=== PATIENT | female | born 1980 | race Asian ===

== ENCOUNTER → 2017-11-29 | Outpatient (CLI) | payer BC ==
[~2017-11-29] MED LIST: LEVEMIR100 U/ML; MOTRIN 600600 MG/TAB PO; PRENATAL1 TA1 PO; SENOKOT S 50 MG1 TAB PO
== END ==
LOC: SUN.DIA 13:12
DX: O24.419 Gestational diabetes mellitus in pregnancy, unspecified control (principal); Z3A.29 29 weeks gestation of pregnancy; Z71.3 Dietary counseling and surveillance
CPT/HCPCS: G0108

== ENCOUNTER → 2017-12-16 | Outpatient (CLI) | payer BC | LOC: SUN.DIA 10:59 | DX: O24.419 Gestational diabetes mellitus in pregnancy, unspecified control (principal); Z3A.33 33 weeks gestation of pregnancy; Z71.3 Dietary counseling and surveillance | CPT/HCPCS: G0108 ==

== ENCOUNTER 2018-02-08 22:47 | Inpatient (IN) | payer BC ==
[2018-02-08] VITALS (7 sets, daily range): BP systolic 112–149; BP diastolic 69–80; PULSE 99–120; TEMP 98.6
[~2018-02-08] VITALS: Ht 157.5 cm; Wt 69.5 kg
[2018-02-09] VITALS (9 sets, daily range): BP systolic 93–119; BP diastolic 52–79; PULSE 90–122; TEMP 98–98.7
[2018-02-09 00:21] LABS: BASO # 0.1 (0.0-0.2); BASO % 0.3 % (0.0-2.0); EOS # 0.1 (0.0-0.7); EOS % 0.3 % (0-4.0); GRAN # 12.2 (1.4-6.5); GRAN % 71.7 % (42.2-75.2); HEMOGLOBIN 11.1 g/dl (12.5-16.0); LYMPH # 3.3 (1.2-3.4); LYMPH % 19.4 % (20.0-51.0); MEAN CELL VOLUME 84 fl (80.0-100.0); MEAN CORPUSCULAR HEMOGLOBIN 28 pg (27.0-31.0); MEAN CORPUSCULAR HGB CONC 33 g/dl (33.0-37.0); MEAN PLATELET VOLUME 10.3 fl (7.4-10.4); MONO # 1.3 (0.1-0.6); MONO % 7.3 % (1.7-9.3); PLATELET COUNT 274 K/mm3 (130-400); RED BLOOD COUNT 4.03 M/mm3 (4.10-5.30); REDCELL DISTRIBUTION WIDTH-CV 14.2 % (11.5-14.5)
[2018-02-09 00:22] LABS: HEMATOCRIT 33.8 % (37.0-47.0)
[2018-02-09] MEDS ORDERED: IBU800 M1 PO (10:26)
[2018-02-10 06:30] VITALS: BP 102/53; PULSE 102; TEMP 97.5
[2018-02-10 20:05] VITALS: BP 105/70; PULSE 105; TEMP 97.3
== END 2018-02-10 20:11 | disposition home or self-care (01) | DRG 774 ==
LOC: LDRO 22:47 → LDR 22:50 → OB 02-09 01:45
PROVIDERS: Student in an Organized Health Care Education/Training Program
PROC: 10E0XZZ Delivery of Products of Conception, External Approach (ICD-10-PCS; principal; 2018-02-08)
DX: O24.420 Gestational diabetes mellitus in childbirth, diet controlled (principal); O72.1 Other immediate postpartum hemorrhage; Z3A.40 40 weeks gestation of pregnancy; Z37.0 Single live birth; Z22.330 Carrier of Group B streptococcus
CPT/HCPCS: J2210; J2590; J7120